=== PATIENT | male | born 1990 | race Caucasian/White ===

== ENCOUNTER 2019-10-02 11:04 | Emergency (ER) | payer SELFPAY ==
[~2019-10-02] VITALS: Ht 172.7 cm; Wt 94.8 kg
[2019-10-02 11:25] VITALS: BP 124/79; Ht 172.7 cm; Wt 94.8 kg
== END 2019-10-02 13:38 | disposition home or self-care (01) ==
LOC: ED 11:04
DX: M72.2 Plantar fascial fibromatosis (principal); Z88.0 Allergy status to penicillin